=== PATIENT | female | born 1940 | race Caucasian/White ===

== ENCOUNTER 2017-12-04 09:29 | Emergency (ER) | payer MEDICARE, BC ==
[~2017-12-04] VITALS: Ht 162.6 cm; Wt 70.0 kg
[~2017-12-04 09:29] MED LIST: ATOR10 PO; NAPR550 PO; TRAM50 PO
[2017-12-04 09:33] VITALS: BP 190/83; PULSE 72; RESP 16; TEMP 98.1; O2SAT 99
[2017-12-04] MEDS ORDERED: MULT1TAB46 (10:21)
[2017-12-04] MEDS ORDERED: ASPI-516 CHEW (10:21)
[2017-12-04] MEDS ORDERED: LIPI10TA PO (10:21)
[2017-12-04] MEDS ORDERED: SODIUM CHLORIDE 0.9% FLUSH 10 ML FLUSH IVF PRN (10:45)
[2017-12-04 10:48] VITALS: O2SAT 96
[2017-12-04 10:53] LABS: AUTOMATED NEUTROPHIL # 6.8 TH/MM3 (1.8-7.7); BASOPHIL % 0.3 % (0.0-2.0); EOSINOPHIL # 0.2 TH/MM3 (0-0.4); EOSINOPHIL % 2.1 % (0.0-4.0); HEMOGLOBIN 14.9 GM/DL (11.6-15.3); LYMPH % 13.8 % (9.0-44.0); LYMPHOCYTE # 1.2 TH/MM3 (1.0-4.8); MEAN CELL VOLUME 89.2 FL (80.0-100.0); MEAN CORPUSCULAR HEMOGLOBIN 28.9 PG (27.0-34.0); MEAN CORPUSCULAR HGB CONC 32.4 % (32.0-36.0); MEAN PLATELET VOLUME 6.9 FL (7.0-11.0); MONO % 7.1 % (0.0-8.0); MONOCYTE # 0.6 TH/MM3 (0-0.9); NEUT % 76.7 % (16.0-70.0); PLATELET COUNT 270 TH/MM3 (150-450); RED BLOOD COUNT 5.16 MIL/MM3 (4.00-5.30); RED CELL DISTRIBUTION WIDTH 12.7 % (11.6-17.2); WHITE BLOOD COUNT 8.8 TH/MM3 (4.0-11.0)
[2017-12-04 10:59] VITALS: BP_SYST 116; BP_SYST 138; BP_DIAS 64; BP_DIAS 73
[2017-12-04 11:01] LABS: CHLORIDE 109 MEQ/L (98-107); SODIUM (NA) 143 MEQ/L (136-145)
--- NOTE | 2017-12-04 11:01 | PD ---
HPI . "Heart palpitations" Chief Complaint: Cardiac Complaint Time Seen by Provider: 10:32 Travel History International Travel<30 days: No Contact w/Intl Traveler<30days: No Traveled to known affect area: No History of Present Illness HPI 77 year old female presents to ED with complaints of intermittent "heart palpitations" for the past 4 days with increasing frequency for two days. She reports that it feels similar to an episode in her 30s which she was diagnosed with occasional PVCs which she was placed on Clonidine for several months with resolution of the palpitations and has not had similar symptoms since. She does not notice a pattern to the palpitations and they only last several beats at a time. She denies chest pain, shortness of breath, N/V however she does feel occasionally lightheaded worse with standing and anxious about symptoms. Denies tobacco, alcohol any other drug usage. She is , at bedside. She has never been evaluated by a retreader. The patient Risk Factors: Previous history of PVCs] Modifying Factors:[None] Associated sign and symptoms: Heart palpitations, lightheadedness. Denies chest pain, denies SOB. PFSH Past Medical History Cancer: Yes (colon) High Cholesterol: Yes Tetanus Vaccination: > 5 Years Influenza Vaccination: Yes Menopausal: Yes Past Surgical History Abdominal Surgery: Yes (colon resection ) Appendectomy: Yes Hysterectomy: Yes Social History Alcohol Use: No Tobacco Use: No Substance Use: No Allergies-Medications (Allergen,Severity, Reaction): Coded Allergies: ciprofloxacin (Unverified Allergy, Mild, RASH, 12/04/17) Reported Meds & Prescriptions Reported Meds & Active Scripts Active Reported Multi Vitamin Daily (Multiple Vitamin) 1 Tab Tab Aspirin 81 Mg Chew 81 Mg CHEW DAILY Lipitor (Atorvastatin Calcium) 10 Mg Tab 10 Mg PO HS Review of Systems Except as stated in HPI: all other systems reviewed are Neg Physical Exam Narrative GENERAL: Well appearing female in ED, no acute distress, appears anxious. Awake and oriented 3. SKIN: Warm and dry. HEAD: Atraumatic. Normocephalic. EYES: Pupils equal and round. No scleral icterus. No injection or drainage. ENT: No nasal bleeding or discharge. Mucous membranes pink and moist. NECK: Trachea midline. No JVD. Supple. CARDIOVASCULAR: Regular rate and rhythm, no murmurs, rubs or gallops. Pulses are present and equal bilaterally. RESPIRATORY: No accessory muscle use. Clear to auscultation. Breath sounds equal bilaterally. GASTROINTESTINAL: Abdomen soft, non-tender, nondistended. Hepatic and splenic margins not palpable. MUSCULOSKELETAL: Extremities without clubbing, cyanosis, or edema. No obvious deformities. NEUROLOGICAL: Awake and alert. No obvious cranial nerve deficits. Motor grossly within normal limits. Five out of 5 muscle strength in the arms and legs. Normal speech. PSYCHIATRIC: Mildly anxious Data Data Last Documented VS Vital Signs Date Time Temp Pulse Resp B/P (MAP) Pulse Ox O2 Delivery O2 Flow Rate FiO2 12/04/17 10:59 116/64 (81) 138/73 (94) 12/04/17 10:48 96 Room Air 12/04/17 09:33 98.1 72 16 Orders Orders Electrocardiogram (12/04/17 10:32) Ckmb (Isoenzyme) Profile (12/04/17 10:32) Complete Blood Count With Diff (12/04/17 10:32) Comprehensive Metabolic Panel (12/04/17 10:32) Magnesium (Mg) (12/04/17 10:32) Prothrombin Time / Inr (Pt) (12/04/17 10:32) Act Partial Throm Time (Ptt) (12/04/17 10:32) Troponin I (12/04/17 10:32) Chest, Single Ap (12/04/17 10:32) Ecg Monitoring (12/04/17 10:32) Bilateral Bp Monitoring (12/04/17 10:32) Iv Access Insert/Monitor (12/04/17 10:32) Oximetry (12/04/17 10:32) Oxygen Administration (12/04/17 10:32) Sodium Chloride 0.9% Flush (Ns Flush) (12/04/17 10:45) Ed Discharge Order (12/04/17 11:47) Labs Laboratory Tests Test 12/04/17 10:45 White Blood Count 8.8 TH/MM3 Red Blood Count 5.16 MIL/MM3 Hemoglobin 14.9 GM/DL Hematocrit 46.0 % Mean Corpuscular Volume 89.2 FL Mean Corpuscular Hemoglobin 28.9 PG Mean Corpuscular Hemoglobin Concent 32.4 % Red Cell Distribution Width 12.7 % Platelet Count 270 TH/MM3 Mean Platelet Volume 6.9 FL Neutrophils (%) (Auto) 76.7 % Lymphocytes (%) (Auto) 13.8 % Monocytes (%) (Auto) 7.1 % Eosinophils (%) (Auto) 2.1 % Basophils (%) (Auto) 0.3 % Neutrophils # (Auto) 6.8 TH/MM3 Lymphocytes # (Auto) 1.2 TH/MM3 Monocytes # (Auto) 0.6 TH/MM3 Eosinophils # (Auto) 0.2 TH/MM3 Basophils # (Auto) 0.0 TH/MM3 CBC Comment DIFF FINAL Differential Comment Prothrombin Time 10.1 SEC Prothromb Time International Ratio 1.0 RATIO Activated Partial Thromboplast Time 25.7 SEC Blood Urea Nitrogen 17 MG/DL Creatinine 0.81 MG/DL Random Glucose 92 MG/DL Total Protein 7.4 GM/DL Albumin 3.6 GM/DL Calcium Level 9.3 MG/DL Magnesium Level 2.3 MG/DL Alkaline Phosphatase 91 U/L Aspartate Amino Transf (AST/SGOT) 22 U/L Alanine Aminotransferase (ALT/SGPT) 25 U/L Total Bilirubin 0.3 MG/DL Sodium Level 143 MEQ/L Potassium Level 4.2 MEQ/L Chloride Level 109 MEQ/L Carbon Dioxide Level 26.6 MEQ/L Anion Gap 7 MEQ/L Estimat Glomerular Filtration Rate 69 ML/MIN Total Creatine Kinase 71 U/L Troponin I LESS THAN 0.02 NG/ML MDM Medical Decision Making Medical Screen Exam Complete: Yes Emergency Medical Condition: Yes Medical Record Reviewed: Yes Interpretation(s) EKG shows NSR, no ST elevation or depression, and no arrhythmias. No significant T-wave inversions. Laboratory Tests Test 12/04/17 10:45 Mean Platelet Volume 6.9 FL (7.0-11.0) Neutrophils (%) (Auto) 76.7 % (16.0-70.0) Chloride Level 109 MEQ/L (98-107) Estimat Glomerular Filtration Rate 69 ML/MIN (>89) Troponin I LESS THAN 0.02 NG/ML Last 24 hours Impressions Chest X-Ray 12/04/17 1032 Signed Impressions: Service Date/Time: Saturday, December 04, 2017 11:04 - CONCLUSION: No acute disease. Sebastian Arzate MD Differential Diagnosis Palpitations/PVCs: Rule out ACS versus electrolyte abnormalities versus dysrhythmias Narrative Course EKG did not show significant dysrhythmias but patient was noted on telemetry to have a few PVCs and that is also when she is having these episodes of palpitations. Lab work did not show any signs of electrolyte abnormalities. Vital signs are otherwise stable. Chest x-ray is unremarkable. At this point, my plan would be to release the patient with follow-up to primary care physician and cardiology. Return for any worsening in symptoms as needed. The plan has been discussed with patient and she states understanding. Diagnosis Primary Impression: PVCs (premature ventricular contractions) Disposition: 01 DISCHARGE HOME Condition: Stable Cameron Bedoya MD Dec 04, 2017 11:01
[2017-12-04 11:04] LABS: CALCIUM 9.3 MG/DL (8.5-10.1)
[2017-12-04 11:05] LABS: ALBUMIN 3.6 GM/DL (3.4-5.0); BICARBONATE 26.6 MEQ/L (21.0-32.0); BLOOD UREA NITROGEN 17 MG/DL (7-18); GLUCOSE,RANDOM 92 MG/DL (74-106); MAGNESIUM 2.3 MG/DL (1.5-2.5)
[2017-12-04 11:08] LABS: ALT (GPT) 25 U/L (10-53); AST (GOT) 22 U/L (15-37); CREATININE 0.81 MG/DL (0.50-1.00); GLOMERULAR FILTRATION RATE 69 ML/MIN (>89)
[2017-12-04 11:10] LABS: TOTAL BILIRUBIN ADULT 0.3 MG/DL (0.2-1.0); TOTAL PROTEIN 7.4 GM/DL (6.4-8.2)
[2017-12-04 11:11] LABS: ALKALINE PHOSPHATASE 91 U/L (45-117)
[2017-12-04 11:13] LABS: PROTHROMBIN TIME - PATIENT 10.1 SEC (9.8-11.6); TROPONIN I LESS THAN 0.02 NG/ML (0.02-0.05)
--- NOTE | 2017-12-04 11:24 | RADRPT ---
EXAM DATE/TIME: 12/04/2017 11:04 [facility] COMPARISON: No previous studies available for comparison. INDICATIONS : Palpitations. MEDICAL HISTORY : None. SURGICAL HISTORY : None. ENCOUNTER: Initial ACUITY: 2 days PAIN SCORE: 0/10 LOCATION: Bilateral chest FINDINGS: A single view of the chest demonstrates the lungs to be symmetrically aerated without evidence of mas s, infiltrate or effusion. The cardiomediastinal contours are unremarkable. Osseous structures are intact. CONCLUSION: No acute disease. Sebastian Arzate MD on December 04, 2017 at 11:19 Board Certified Radiologist. This report was verified electronically.
[2017-12-04 12:03] VITALS: BP 128/84
--- NOTE | 2017-12-04 14:02 | EKG ---
Date Performed: 12/04/2017 Time Performed: 10:54:30 PTAGE: 77 years EKG: Sinus rhythm MARKED LEFT AXIS DEVIATION POSSIBLE RIGHT VENTRICULAR CONDUCTION DELAY MODERATE VOLTAGE CRITERIA FOR LVH, CONSIDER NORMAL VARIANT ABNORMAL ECG No significant change from prior electrocardiogram. PREVIOUS TRACING : 01/09/2010 11.39 DOCTOR: Santy Lopez Interpretating Date/Time 12/04/2017 14:01:35
== END 2017-12-04 12:35 | disposition home or self-care (01) ==
LOC: PHED 09:29
DX: I49.3 Ventricular premature depolarization (principal); E78.00 Pure hypercholesterolemia, unspecified
CPT/HCPCS: 71045; 80053; 82550; 83735; 84484; 85025; 85610; 85730; 93005; 99285